=== PATIENT | female | born 1980 | race African-American/Black ===

== ENCOUNTER 2016-06-14 18:20 | Inpatient (IN) | payer OTHER ==
[2016-06-14] VITALS (10 sets, daily range): BP systolic 90–125; RESP 13–25; TEMP 98.3–98.5; Ht 157.5 cm; Wt 121.6 kg
[~2016-06-14] VITALS: Ht 157.5 cm; Wt 121.6 kg
[2016-06-14] MEDS: LACT RINGERS 1,000 ML IV SCH ×3 (18:40→23:45)
[2016-06-14] MEDS ORDERED: FAMOTIDINE 20 MG INJ IV ONE (19:20)
[2016-06-14] MEDS ORDERED: METOCLOPRAMIDE 10 MG/2 ML VIAL IV PUSH ONE (19:20)
[2016-06-14] MEDS ORDERED: CEFAZOLIN 3,000 MG in SODIUM CHLORIDE 0.9% 100 ML IV ONE (19:20)
[2016-06-14] MEDS ORDERED: NALOXONE 0.4 MG/ML AMP IV PRN (20:10)
[2016-06-14] MEDS ORDERED: SALINE FLUSH 10 ML FLUSH PRN (20:10)
[2016-06-14] MEDS ORDERED: PROMETHAZINE 25 MG/ML VIAL IV PRN (20:10)
[2016-06-14] MEDS ORDERED: MEPERIDINE 25 MG/ML IV PRN (20:10)
[2016-06-14] MEDS ORDERED: MORPHINE 2 MG/ML SYR IV PRN ×2 (20:10)
[2016-06-14] MEDS ORDERED: MORPHINE 4 MG/ML SYR IV PRN ×2 (20:10)
[2016-06-14] MEDS ORDERED: DIPHENHYDRAMINE 50 MG/ML VIAL IV PRN (20:10)
[2016-06-14] MEDS ORDERED: OXYCODONE 5 MG TAB PO PRN (20:10)
[2016-06-14] MEDS ORDERED: ONDANSETRON 4 MG VIAL IV PRN ×3 (20:10→21:40)
[2016-06-14] MEDS ORDERED: KETOROLAC 30 MG/ML VIAL IV SCH (20:10)
[2016-06-14] MEDS: SALINE FLUSH 10 ML FLUSH SCH (20:10)
[2016-06-14] MEDS ORDERED: LACT RINGERS 1,000 ML IV SCH (21:40)
[2016-06-14] MEDS ORDERED: MEASLES,MUMPS,RUBELLA VAC SUBQ.VACC ONE (21:40)
[2016-06-14] MEDS ORDERED: MAG HYDROX 30 ML UDC PO PRN (21:40)
[2016-06-14] MEDS ORDERED: BISACODYL 10 MG SUPP RECTAL PRN (21:40)
[2016-06-14] MEDS ORDERED: OXYTOCIN 15 UNITS/250 ML NS 250 ML IV SCH (21:40)
[2016-06-14] MEDS ORDERED: TDaP 0.5 ML VIAL IM.VACC ONE (21:40)
[2016-06-14] MEDS: BUTORPHANOL 1 MG/ML VIAL IV PRN (22:26)
[2016-06-14] MEDS: DILAUDID 1 MG/ML AMP IV PRN (23:43)
[2016-06-15] VITALS (11 sets, daily range): BP systolic 110–138; RESP 18–22; TEMP 97.4–97.9
[2016-06-15] MEDS: DILAUDID 1 MG/ML AMP IV PRN (00:06)
[2016-06-15] MEDS: KETOROLAC 30 MG/ML VIAL IV SCH ×4 (00:07→17:52)
[2016-06-15] MEDS: CEFAZOLIN 2,000 MG in SODIUM CHLORIDE 0.9% 100 ML IV SCH ×2 (00:54→07:43)
[2016-06-15] MEDS: DOCUSATE SOD 100 MG CAP PO SCH (07:43)
[2016-06-15] MEDS: LACT RINGERS 1,000 ML IV SCH (07:43)
[2016-06-15] MEDS: BUTORPHANOL 1 MG/ML VIAL IV PRN (07:44)
[2016-06-15] MEDS: SODIUM CHLORIDE 0.9% FLUSH BAG 500 ML IV SCH (07:44)
[2016-06-15] MEDS: SALINE FLUSH 10 ML FLUSH SCH ×2 (07:46→17:52)
[2016-06-15] MEDS ORDERED: ONDANSETRON 4 MG VIAL IV PUSH ONE (10:45)
[2016-06-15] MEDS ORDERED: PHENYLEPHRINE 10 MG/ML VIAL IV ONE (10:45)
[2016-06-15] MEDS: OXYCODONE/APAP 5/325 TAB PO PRN (21:53)
[2016-06-16] MEDS: Ibuprofen 600 MG TAB PO SCH ×5 (00:57→23:59)
[2016-06-16] MEDS: OXYCODONE/APAP 5/325 TAB PO PRN ×3 (01:49→20:52)
[2016-06-16] MEDS: SODIUM CHLORIDE 0.9% FLUSH BAG 500 ML IV SCH (05:42)
[2016-06-16] MEDS: SALINE FLUSH 10 ML FLUSH SCH ×2 (07:21→22:21)
[2016-06-16] MEDS: DOCUSATE SOD 100 MG CAP PO SCH (08:32)
[2016-06-16 10:49] VITALS: BP_SYST 144; TEMP 97.7
[2016-06-16 10:50] VITALS: RESP 18
[2016-06-16 13:17] VITALS: BP_SYST 127; RESP 16; TEMP 98
[2016-06-16] MEDS ORDERED: TDaP 0.5 ML VIAL IM.VACC ONE (17:18)
[2016-06-16 17:28] VITALS: BP_SYST 135; TEMP 98
[2016-06-16 17:30] VITALS: RESP 24
[2016-06-17] MEDS: Ibuprofen 600 MG TAB PO SCH ×2 (05:16→12:17)
[2016-06-17] MEDS: OXYCODONE/APAP 5/325 TAB PO PRN ×3 (05:17→15:47)
[2016-06-17 05:39] VITALS: BP_SYST 139; RESP 20; TEMP 97.5
[2016-06-17] MEDS: DOCUSATE SOD 100 MG CAP PO SCH (09:03)
[2016-06-17 09:16] VITALS: BP_SYST 142; RESP 18; TEMP 97.6
[2016-06-17 09:18] VITALS: BP_SYST 142; RESP 18; TEMP 97.6
[2016-06-17 15:37] VITALS: BP_SYST 135; RESP 22; TEMP 97.6
== END 2016-06-17 16:52 | disposition home or self-care (01) | DRG 766 ==
LOC: LDOP 18:20 → LD 19:20 → OB 06-15 00:30
PROVIDERS: ADMIT Obstetrics & Gynecology; ATTEND Obstetrics & Gynecology
PROC: 10D00Z1 Extraction of Products of Conception, Low, Open Approach (ICD-10-PCS; principal; 2016-06-14)
PROC: 0UB60ZZ Excision of Left Fallopian Tube, Open Approach (ICD-10-PCS; 2016-06-14)
DX: O76 Abnormality in fetal heart rate and rhythm complicating labor and delivery (principal); Z23 Encounter for immunization; O13.4 Gestational [pregnancy-induced] hypertension without significant proteinuria, complicating childbirth; Z3A.36 36 weeks gestation of pregnancy; Z37.0 Single live birth; Z30.2 Encounter for sterilization; O34.211 Maternal care for low transverse scar from previous cesarean delivery
CPT/HCPCS: 82803; 85025; 88302; 88307; 96372